=== PATIENT | female | born 1990 | race Caucasian/White ===

== ENCOUNTER → 2023-10-27 | Outpatient (CLI) | payer OTHER ==
--- NOTE | 2023-10-27 13:11 | XR ---
EXAMINATION TYPE: XR lumbar spine 2 or 3V DATE OF EXAM: 10/27/2023 11:41 AM CLINICAL INDICATION:Female, 33 years old with history of M54.5 LOW BACK PAIN, UNSPECIFIED; COMPARISON: None TECHNIQUE: XR lumbar spine 2 or 3V - Frontal, lateral and coned in L5-S1 lateral views of the spine. FINDINGS: No evidence of any acute osseous pathology. No evidence of loss of vertebral body height i s seen. There is normal alignment of the lumbar vertebral bodies. Scattered disc space narrowing. Mul tilevel marginal osteophyte formation throughout the visualized spine. There is facet joint arthropat hy throughout the spine. Scattered at least mild neural foraminal stenosis worse at the lower lumbar spine. IMPRESSION: 1. No acute fracture. 2. Moderate multilevel disc degeneration worse in the facet joints throughout the lower lumbar spine.
== END | disposition home or self-care (01) ==
LOC: RADXRMAIN 11:20
PROVIDERS: ATTEND Family Medicine
DX: M51.36 Other intervertebral disc degeneration, lumbar region (principal); M47.816 Spondylosis without myelopathy or radiculopathy, lumbar region
CPT/HCPCS: 72100

== ENCOUNTER → 2024-02-08 | Outpatient (CLI) | payer OTHER ==
[2024-02-08 08:51] VITALS: BP 159/77; PULSE 71; RESP 14; TEMP 98.2
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
--- NOTE | 2024-02-09 12:53 | XR ---
EXAMINATION TYPE: XR cervical spine 3 views DATE OF EXAM: 02/08/2024 Comparison: None Clinical History: 33-year-old female Q76.1 Klippel Feil Syndrome Findings: There are characteristic findings with interbody ankylosis throughout the cervical spine and narrowin g of the anterior posterior vertebral body dimension. Normal odontoid view. Impression: Wasp waist sign and interbody ankylosis throughout the cervical spine in keeping with patient's diagn osis of Klippel Feil Syndrome.
== END ==
LOC: PNWHC3 07:55
PROVIDERS: ATTEND Specialist
DX: Q76.1 Klippel-Feil syndrome (principal); M50.30 Other cervical disc degeneration, unspecified cervical region; M47.812 Spondylosis without myelopathy or radiculopathy, cervical region; Z88.5 Allergy status to narcotic agent
CPT/HCPCS: 72040; G0463; 99211

== ENCOUNTER → 2024-02-11 | Outpatient (CLI) | payer OTHER ==
--- NOTE | 2024-02-11 12:05 | MR ---
EXAMINATION TYPE: MR cervical spine wo con DATE OF EXAM: 02/11/2024 COMPARISON: Radiograph 02/08/2024 HISTORY: 33-year-old female Q76.1 Lt arm pain/weakness, Klippel Feit Syndrome TECHNIQUE: Multiplanar, multisequence images of the cervical spine were acquired without contrast. FINDINGS: No craniocervical junction abnormality, predental space widening, or prevertebral soft tissue swellin g. There are changes of Klippel-Feil syndrome with interbody fusion from C2 through T2 levels. The cervi álvaro vertebra are diminutive in size also with narrowing of the AP dimension. Secondary shortened heig ht of the cervical spine. There is spina bifida from C1 through C4 levels with patulous dorsal thecal sac here suggesting a mye lomeningocele spanning 3.4 cm craniocaudal by 3.1 cm AP by 2.1 cm wide. There is contiguous partial s plitting of the dorsal cord along this craniocaudal dimension, refer to axial image 68 and sagittal i mage 9 for some cash applications representative images. No evidence spinal canal stenosis. No other T2-weighted cord signal abnormality seen. Variable mild narrowing of the neuroforamen in the cervical spine. Alignment is maintained. No suspicious bone marrow replacement. Prominent red marrow may be seen in younger patients and also with obesity, anemia, smoking, chronic disease. IMPRESSION: 1. Known Klippel-Feil syndrome with interbody ankylosis C2-T2 levels with wasp waist sign and overall decreased height of the cervical spine. 2. 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 There is contiguous partial splitting of the dorsal cord along the 3.4 cm craniocaudal dime nsion of the spinal bifida. 3. No spinal canal stenosis. Variable mild neuroforaminal stenoses throughout the cervical spine.
== END | disposition home or self-care (01) ==
LOC: RADMRIMAIN 08:34
PROVIDERS: ATTEND Specialist
DX: Q76.1 Klippel-Feil syndrome (principal); M99.71 Connective tissue and disc stenosis of intervertebral foramina of cervical region; Q05.5 Cervical spina bifida without hydrocephalus
CPT/HCPCS: 72141

== ENCOUNTER → 2024-02-29 | Outpatient (CLI) | payer OTHER | LOC: PNWHC3 08:00 | PROVIDERS: ATTEND Specialist | DX: Q76.1 Klippel-Feil syndrome | CPT/HCPCS: 99211 ==

== ENCOUNTER → 2024-10-04 | Outpatient (CLI) | payer OTHER ==
--- NOTE | 2024-10-04 09:48 | CT ---
EXAMINATION TYPE: CT abdomen wo con DATE OF EXAM: 10/04/2024 COMPARISON: NONE CLINICAL INDICATION: Female, 34 years old with history of R10.84 GENERALIZED ABDOMINAL PAIN N28.9, Ab dominal pain, dr ambrosio single kidney ruled out., TECHNIQUE: CT scan of the abdomen is performed without contrast. (none if empty) Oral contrast used: with Oral Contrast (none if empty) CT DLP: 1036.30 mGycm, Automated exposure control for dose reduction was used. FINDINGS: Within the limitations of noncontrast study, the following observations are made. LUNG BASES: No significant abnormality is appreciated. LIVER/GB: No significant abnormality is appreciated. PANCREAS: No significant abnormality is seen. SPLEEN: No significant abnormality is seen. ADRENALS: No significant abnormality is seen. KIDNEYS: No renal stones or hydronephrosis is seen bilaterally. BOWEL: Oral contrast does not reach colonic level. No abnormal small or large bowel dilatation is see n. LYMPH NODES: No greater than 1cm abdominal lymph nodes are appreciated. OSSEOUS STRUCTURES: Scoliotic curvature positioning is present. There is multilevel spurring in the v isualized thoracic spine. OTHER: No significant additional abnormality is seen. IMPRESSION: Both kidneys are present. No acute findings are seen. [facility], , 10/04/2024 9:45 AM
== END | disposition home or self-care (01) ==
LOC: RADCTMAIN 08:32 → EEVIPCON 09:15
PROVIDERS: ATTEND Family Medicine
DX: N28.9 Disorder of kidney and ureter, unspecified (principal)
CPT/HCPCS: 74150

== ENCOUNTER → 2024-12-14 | Outpatient (CLI) | payer OTHER ==
--- NOTE | 2024-12-14 16:40 | MR ---
INDICATION: Patient age:Female; 34 years old; Reason for study: Q76.1 KLIPPEL-FEIL SYNDROME; [facility]. COMPARISON: MR cervical spine 02/11/2024. TECHNIQUE: Multi planar, multi sequence imaging was performed utilizing: T1-weighted, T2-weighted, an d turbo inversion recovery imaging of the thoracic spine. The patient was not given Gadolinium. FINDINGS: The thoracic vertebral bodies have preserved heights and alignment. The osseous structure have normal signal intensity. Thoracic spinal cord appears unremarkable. Broad-based disc bulges at T9-T10 and T 10-T11 with mild effacement of the anterior thecal sac with close approximation of the ventral spinal cord. Resultant mild central canal stenosis. No evidence of significant spinal canal stenosis at any other thoracic level. No evidence of neuroforaminal stenosis of the thoracic spine. Mild multilevel disc desiccation. No visualized hemivertebrae of the thoracic spine. There are again changes of Known Klippel-Feil syndrome with interbody fusion from C2 through T2 level s. The cervical vertebral on the survey imaging demonstrates diminutive size again with narrowing of the AP dimension. There is secondary shortening height of the cervical spine. There is again a patulo us dorsal thecal sac at the C1-C4 level suggesting a myelomeningocele. Diffusely prominent red marrow may be seen in younger patients and also with obesity, anemia, smoking , or chronic disease. IMPRESSION: 1. Mild multilevel degenerative disc disease of the lower thoracic spine as described above. Unremark able appearance of the thoracic spinal cord. 2. Known Klippel-Feil syndrome with interbody ankylosis of the C2-T2 levels with wasp waist sign and overall decreased height of the cervical spine. Better appreciated on prior MR cervical spine 02/11/20 24 with again suggested cervical mild myelomeningocele. [facility], , 12/14/2024 4:38 PM
== END | disposition home or self-care (01) ==
LOC: RADMRIMAIN 14:59
PROVIDERS: ATTEND Neurological Surgery
DX: Q76.1 Klippel-Feil syndrome (principal); M51.34 Other intervertebral disc degeneration, thoracic region
CPT/HCPCS: 72146

== ENCOUNTER → 2024-12-16 | Outpatient (CLI) | payer OTHER ==
--- NOTE | 2024-12-16 13:00 | MR ---
EXAMINATION TYPE: MR lumbar spine wo con DATE OF EXAM: 12/16/2024 10:51 AM COMPARISON: None. CLINICAL INDICATION: Female, 34 years old with history of Q76.1 KLIPPEL-FEIL SYNDROME, kLIPPEL-FEIL S YNDROME, Low back pain into buttocks TECHNIQUE: Multiplanar, multisequence images of the lumbar spine were acquired without IV contrast. FINDINGS: Mild congenital spinal canal narrowing mid and lower spine with AP canal dimension of 1.3 cm. Mild early intervertebral disc desiccation L4-L5 and L5-S1. No focal disc herniation. Mild ligamentum flavum thickening mid lumbar spine and moderate facet arthropathy mid to lower lumbar spine. Vertebral body heights are preserved and alignment is maintained. Incidental bulging disc T11-T12 contribute to mild narrowing of the spinal canal with abutment and sl ight flattening of the ventral cord. Conus medullaris is normal. Otherwise, no large focal disc herniation or significant spinal canal stenosis. No significant or foraminal stenosis seen. Slightly diminished marrow signal diffusely in keeping with patient's relatively younger age and red marrow. IMPRESSION: 1. Degenerative disc disease noted at T11-T12 with desiccated and bulging disc. This contributes to f ocal mild spinal canal stenosis with abutment and slight flattening of the ventral cord at this level . 2. Mild degenerative disc disease with disc desiccation L4-L5 and L5-S1. Also, there is a mild congen ital spinal canal narrowing mid lumbar spine. No large focal disc herniation or significant spinal ca nal stenosis otherwise seen. 3. Ligamentum flavum thickening mid lumbar spine. Moderate facet arthropathy mid to lower lumbar spin e. No vertebral compression collapse or malalignment. [facility], , 12/16/2024 12:58 PM
== END | disposition home or self-care (01) ==
LOC: RADMRIMAIN 10:03 → EEVIPCON 10:15
PROVIDERS: ATTEND Neurological Surgery
DX: Q76.1 Klippel-Feil syndrome (principal); M51.379 Other intervertebral disc degeneration, lumbosacral region without mention of lumbar back pain or lower extremity pain; M51.34 Other intervertebral disc degeneration, thoracic region
CPT/HCPCS: 72148